=== PATIENT | male | born 1960 | race Caucasian/White ===

== ENCOUNTER 2017-04-27 11:39 | Emergency (ER) | payer SELFPAY ==
[~2017-04-27] VITALS: Ht 185.4 cm; Wt 88.5 kg
[2017-04-27 14:11] VITALS: BP 173/106
== END 2017-04-27 14:19 | disposition home or self-care (01) ==
LOC: ED 11:39
DX: J93.9 Pneumothorax, unspecified (principal)
CPT/HCPCS: 32554; J2001; Q0092

== ENCOUNTER 2017-04-29 15:41 | Emergency (ER) | payer SELFPAY ==
[~2017-04-29] VITALS: Ht 185.4 cm; Wt 86.6 kg
[2017-04-29 17:00] VITALS: BP 154/106
== END 2017-04-29 17:05 | disposition home or self-care (01) ==
LOC: ED 15:41
DX: J93.9 Pneumothorax, unspecified (principal)
CPT/HCPCS: Q0092

== ENCOUNTER 2017-05-01 06:05 | Emergency (ER) | payer SELFPAY ==
[~2017-05-01] VITALS: Ht 185.4 cm; Wt 87.1 kg
[2017-05-01 07:30] VITALS: BP 153/100
== END 2017-05-01 07:48 | disposition home or self-care (01) ==
LOC: ED 06:05
DX: J93.9 Pneumothorax, unspecified (principal)
CPT/HCPCS: Q0092